=== PATIENT | male | born 1990 | race Caucasian/White ===

== ENCOUNTER 2023-12-10 08:05 | Day surgery (SDC) | payer BC ==
[2023-12-10] MEDS ORDERED: fentaNYL 50 MCG/ML SDV ONE (08:18)
[2023-12-10] MEDS ORDERED: Midazolam 1 MG/ML 2 ML SDV ONE (08:18)
[2023-12-10] MEDS ORDERED: Propofol 200 MG/20 ML SDV ONE (08:18)
[2023-12-10] MEDS ORDERED: Sodium Chloride 0.9% 1,000 ML IV SCH (08:45)
== END 2023-12-10 11:20 | disposition home or self-care (01) ==
LOC: JP.SDS 08:05
PROVIDERS: ATTEND Surgery
DX: K29.80 Duodenitis without bleeding (principal); R13.10 Dysphagia, unspecified; K21.9 Gastro-esophageal reflux disease without esophagitis
CPT/HCPCS: 00731; 43239; J2250; J2704; J3010; 88305